=== PATIENT | male | born 1990 | race Caucasian/White ===

== ENCOUNTER 2016-12-31 10:20 | Emergency (ER) | payer OTHER ==
[2016-12-31 10:36] VITALS: BP 120/86; PULSE 62; TEMP 97.8; BMI 25.7
--- NOTE | 2016-12-31 10:51 | PDOC ---
History of Present Illness - General Stated Complaint: VISION PROBLEM Time Seen by Provider: 12/31/16 10:37 History Source: Patient - History of Present Illness Timing/Duration: other (this am) Associated Symptoms: denies: headaches, nausea/vomiting, seizure Past History - Past Medical History Allergies/Adverse Reactions: Allergies Allergy/AdvReac Type Severity Reaction Status Date / Time No Known Allergies Allergy Verified 12/31/16 10:36 Home Medications: Ambulatory Orders NK [No Known Home Medication] 12/31/16 Other medical history: denies - Surgical History Abdominal Surgery: No - Psycho/Social/Smoking Cessation Hx Suicidal Ideation: No Smoking Status: No Smoking History: Never smoked Have you smoked in the past 12 months: No Number of Cigarettes Smoked Daily: 0 Hx Alcohol Use: No Drug/Substance Use Hx: No (denies) Substance Use Type: Alcohol Hx Substance Use Treatment: No Review of Systems - Review of Systems Constitutional: No: Chills, Fever HEENTM: Yes: Recent change in vision. No: Eye Pain, Blurred Vision, Tearing Neurological: Yes: Dizziness. No: Headache *Physical Exam - Vital Signs Last Vital Signs Temp Pulse Resp BP Pulse Ox 97.8 F 62 18 120/86 100 12/31/16 10:31 12/31/16 10:31 12/31/16 10:31 12/31/16 10:31 12/31/16 10:31 - Physical Exam General Appearance: Yes: Appropriately Dressed. No: Apparent Distress HEENT: positive: Normal Voice, Other (EOMI, PERRLA, peripheral vision intact in all lopez, no obvious fundoscopic ab/nl, VA 20/30 OD, 20/40 OS, 20/20 OU) Neck: positive: Supple Respiratory/Chest: negative: Respiratory Distress Integumentary: positive: Dry, Warm Neurologic: positive: Fully Oriented, Alert, Normal Mood/Affect, Motor Strength 5/5. negative: Facial Droop Medical Decision Making - Medical Decision Making 12/31/16 10:45 26-year-old male, denies any past medical history, wears glasses for nearsightedness, here complaining of visual disturbance to R eye this a.m. Patient states around 9:30 am today, he noticed a dark spot in the center of his vision that at some point, changed to "a line" and then to flashing colors as per patient. States he never lost his vision and denies blurry vision or eye pain. Also had dizziness earlier that has since resolved. No headache, nausea , vomiting. States overall symptoms have improved. Denies recent trauma. No history of similar episode. Pt well maryse and stable w/ unremarkable eye exam including intact vision, no e/o retinal detachment at this time. I contacted Dr. Siva Green, of ophthalmology to discuss case. As per M.Agustin symptoms possibly migrainous. Recommends discharging with following up in office next week. Patient informed of plan and feels safe going home. Strict return precautions given *DC/Admit/Observation/Transfer Diagnosis at time of Disposition: Visual disturbance - Discharge Dispostion Disposition: HOME Condition at time of disposition: Improved - Patient Instructions Additional Instructions: Your eye exam was normal today. Please follow up with Dr Siva Green of ophthalmology at If symptoms worsen, return to ED immediately
== END 2016-12-31 11:20 | disposition home or self-care (01) ==
LOC: JER 10:20
DX: H53.9 Unspecified visual disturbance (principal)
CPT/HCPCS: 99282-25